=== PATIENT | male | born 1945 | race Caucasian/White ===

== ENCOUNTER 2024-09-08 09:11 | Day surgery (SDC) | payer OTHER ==
[2024-09-08] VITALS (7 sets, daily range): BP systolic 103–151; BP diastolic 41–138
[~2024-09-08] VITALS: Ht 175.3 cm; Wt 67.6 kg
[~2024-09-08 09:11] MED LIST: DOCU100 PO; ELIQUIS5 M2 PO; HYDMOR2 PO; LEVSOD100 PO; RXHYDMOR2 PO; RXPROM25S PR
[2024-09-08] MEDS ORDERED: Verapamil HCL 2.5 MG/ML 2ML Injection ONE (10:02)
[2024-09-08] MEDS ORDERED: NS 1,000 ML IV ONE ×2 (10:03→10:24)
[2024-09-08] MEDS ORDERED: Heparin Sodium 1000 Units/ML 10ML MDV ONE (10:03)
[2024-09-08] MEDS ORDERED: NS 250 ML IV ONE (10:03)
[2024-09-08] MEDS ORDERED: FentaNYL Citrate 50 MCG/ML 2 ML Injection ONE (10:33)
[2024-09-08] MEDS ORDERED: Midazolam HCl 1MG / ML 2ML Vial ONE (10:34)
--- NOTE | 2024-09-08 11:40 | NUR ---
pt back to recovery from lab. radial site soft and non-tender per pt. no bleeding/hematoma noted. pt a&o. pt sitting up in recliner eating lunch.
--- NOTE | 2024-09-08 12:12 | NUR ---
ASSUMED CARE FROM KAMRON GRADY RN; TR BAND INTACT, NO ACUTE CONCERNS, ASSISTED PATIENT WITH REQUESTS, VSS, D/C PNEDING OTHERWISE. CALL LIGHT IN REACH, PATIENT EATING/DRINKING.
--- NOTE | 2024-09-08 13:08 | NUR ---
radial site started to bleed after removing 2cc air from tr band. air put back in band. site soft and non-tender per pt. no bleeding/hematoma noted currently.
--- NOTE | 2024-09-08 14:33 | NUR ---
REPORT RECEIVED EARLIER, TRACK OOZE RIGHT WRIST NOTED, HELD OFF DEFLATION DUE TO CONCERN FOR SITE BLEED POSSIBLE, NO HEMATOMA. LATER, REMOVED AIR AND PRESENTLY TR BAND DEFLATED, PLAN TO REMOVE BAND IF NO BLEED AND D/C HOME, PATIENT PRESENTLY ON PHONE WITH FAMILY. PATIENT CALLED CHRISTIAN FRIENDS EARLIER, WHO PLAN TO COME GET HIM SOON WELL. VSS, SITE INTACT. EARLIER, DISCUSSED MEDICATIONS, D/C INSTRUCTIONS AND FOLLOW UP APPOINTMENT. DENIED QUESTIONS/CONCERNS, D/C OTHERWISE PENDING.
--- NOTE | 2024-09-08 15:15 | NUR ---
TR BAND AIR OUT EARLIER, INTACT; REMOVED TR BAND, CLOTH DOT PLACED, NO OOZING OR ISSUES NOTED, NO HEMATOMA, GOOD PULSES PROX/DISTAL, VSS, PATIENT DRESSED, IV OUT, DAUGHTER CALLED PATIENT WONDERING ABOUT PROCEDURE TODAY AND OTHER CONCERNS, SLIGHTLY UPSETTING TO PATIENT, [employer] FRIENDS COORDINATED TO COME GET PATIENT EARLIER, AND PATIENT VERBALIZED OK WAITING FOR FRIENDS AT ENTRANCE, PATIENT DRESSED, BELONGINGS GATHERED, AWAITING TRANSPORTATION AT ENTRANCE AT PRESENT TIME, NO CONCERNS AT TIME OF D/C OTHERWISE.
== END 2024-09-08 15:15 | disposition home or self-care (01) ==
LOC: MHTC 09:11
DX: I25.118 Atherosclerotic heart disease of native coronary artery with other forms of angina pectoris (principal); I10 Essential (primary) hypertension; J44.9 Chronic obstructive pulmonary disease, unspecified; Z79.01 Long term (current) use of anticoagulants; Z88.1 Allergy status to other antibiotic agents; Z88.5 Allergy status to narcotic agent; Z88.8 Allergy status to other drugs, medicaments and biological substances
CPT/HCPCS: 76937; 93454; 99152; C1769; C1887; C1894; J1644; J2250; J3010; J7030; J7050; Q9967